=== PATIENT | female | born 1945 | race Caucasian/White ===

== ENCOUNTER 2018-05-14 18:45 | Emergency (ER) | payer MEDICARE, OTHER ==
[~2018-05-14] VITALS: Ht 170.2 cm; Wt 63.6 kg
[2018-05-14 19:47] LABS: BASOPHILS % (AUTO) 0.5 % (0-1); EOSINOPHILS # (AUTO) 0.1 X10'3 (0-0.9); EOSINOPHILS % (AUTO) 1.8 % (0-6); HEMATOCRIT 36.4 % (35.0-45.0); HEMOGLOBIN 12.6 g/dl (12.0-16.0); LYMPHOCYTES # (AUTO) 2.1 X10'3 (1.1-4.8); LYMPHOCYTES % (AUTO) 29.2 % (21-51); MEAN CORPUSCULAR HEMOGLOBIN 31.5 PG (27.0-31.0); MEAN CORPUSCULAR HGB CONC 34.7 % (33.0-36.5); MEAN CORPUSCULAR VOLUME 90.7 FL (78-98); MEAN PLATELET VOLUME 9.4 FL (7.4-10.4); MONOCYTES # (AUTO) 0.4 X10'3 (0-0.9); MONOCYTES % (AUTO) 5.1 % (2-12); NEUTROPHILS # (AUTO) 4.5 X10'3 (1.8-7.7); NEUTROPHILS % (AUTO) 63.4 % (42-75); PLATELET COUNT 173 X10'3 (140-440); RED BLOOD COUNT 4.02 X10'6 (4.20-5.60); WHITE BLOOD COUNT 7.1 X10'3 (4.5-11.0)
[2018-05-14 19:59] LABS: PARTIAL THROMBOPLASTIN TIME 22 SECONDS (22-32)
[2018-05-14] MEDS ORDERED: normal saline 1000ML IV soln IVB ONE (20:00)
[2018-05-14 20:01] LABS: ALANINE AMINOTRANSFERASE 17 U/L (12-78); ALBUMIN 3.3 G/DL (3.4-5.0); ALBUMIN/GLOBULIN RATIO 1.1 (1.1-1.5); ALKALINE PHOSPHATASE 73 IU/L (46-116); ANION GAP 9 (8-16); ASPARTATE AMINO TRANSFERASE 11 U/L (10-37); BILIRUBIN,TOTAL 0.2 MG/DL (0.1-1.0); BLOOD UREA NITROGEN 21 MG/DL (7-18); BUN/CREATININE RATIO 19.8 (6.6-38.0); CALCIUM 8.7 MG/DL (8.5-10.1); CHLORIDE 104 MMOL/L (99-107); CREATININE 1.06 MG/DL (0.40-0.90); GLUCOSE 136 MG/DL (70-104); POTASSIUM 3.8 MMOL/L (3.5-5.1); SODIUM 140 MMOL/L (135-145); TOTAL PROTEIN 6.3 G/DL (6.4-8.2); eGFR 51 ML/MIN
[2018-05-14] MEDS ORDERED: NO HOME MEDS (21:37)
[2018-05-14 22:23] VITALS: BP 125/74
== END 2018-05-14 22:20 | disposition left against medical advice (07) ==
LOC: ER 18:45
DX: R55 Syncope and collapse (principal); F17.210 Nicotine dependence, cigarettes, uncomplicated; Z91.040 Latex allergy status
CPT/HCPCS: 36415; 71045; 80053; 82948; 84484; 85025; 85610; 85730; 93005; 96360; 99285; J7030

== ENCOUNTER 2020-06-21 03:37 | Emergency (ER) | payer MEDICARE, OTHER ==
[~2020-06-21] VITALS: Ht 170.2 cm; Wt 69.1 kg
[~2020-06-21 03:37] MED LIST: NO HOME MEDS
[2020-06-21 03:42] VITALS: BP 173/98
== END 2020-06-21 04:18 | disposition home or self-care (01) ==
LOC: ER 03:38
DX: M79.672 Pain in left foot (principal); Z79.899 Other long term (current) drug therapy
CPT/HCPCS: 99281

== ENCOUNTER 2025-08-31 15:37 | Emergency (ER) | payer MEDICARE, OTHER ==
[~2025-08-31] VITALS: Ht 167.6 cm; Wt 74.1 kg
[~2025-08-31 15:37] MED LIST changes: +ALBU18HF2 INH; +DEXA6TAB PO; -NO HOME MEDS
--- NOTE | 2025-08-31 15:59 | Physician Documentation ---
History of Present Illness Chief Complaint: Abdominal Pain w/vomiting Stated Complaint: NAUSEA/VOMITING Primary Medical Doctor: [facility] BHARATH Is a very pleasant 80-year-old female that presents to the emergency department for evaluation of nausea vomiting x1 day. Per patient she made eggnog on Wednesday, her family drank it and they became sick but she finished the rest of it. She has been vomiting and having watery diarrhea since. She also has cramping abdominal pain and bloating diffusely. Patient reports that she primarily has left lower quadrant pain. Patient denies fevers & chills or bloody stools but does report nausea and vomiting at this time. Patient reports that she spoke with her primary care provider who asked her to take some milk of magnesia along with other medications due to feeling like she was constipated. She was unable to keep these down. Patient reports that she took some Gas-X last night so that she can sleep which helped. Denies taking any regular medications. Patient reports that she has esophageal difficulty with swallowing in his scheduled to have a swallow study done with her primary care provider. No other symptoms reported at this time. Addendum ER physician addendum The patient confirms that she is having abdominal pain and vomiting. She states that her entire abdomen feels distended and painful, but the pain is worse in the left lower quadrant. She has had multiple episodes of vomiting. She tried taking a laxative but it did not help. She is not passing any significant amount of stool and minimal gas. She has had multiple abdominal surgeries including appendix, total hysterectomy. No history of bowel obstruction. She thinks it all started when she drank some eggnog that also made other people sick. She would like some pain medicine Medication Reconciliation Allergies: Coded Allergies: latex (Unverified Allergy, Unknown, 08/31/25) Uncoded Allergies: STATINS (Allergy, Unknown, 03/02/22) Scheduled Albuterol Sulfate (Ventolin Hfa), 2 PUFFS INH Q4HPRN Dexamethasone (Dexamethasone), 6 MG PO DAILY Past Medical History Past Medical History: Arrhythmia, High Cholesterol Past Surgical History: other Alcohol Use: Rarely Lives with: Spouse Lives In: Home Occupation: retired Review of Systems Constitutional: Denies: fever Gastrointestinal: Reports: abdominal pain, nausea, vomiting, constipated Physical Exam Vital Signs: Temperature: 98.1, Source: Temporal, Heart Rate: 62, Respiratory Rate: 18, BP: 182/74, Pulse Oximetry: 99, Weight: 74.100 Oxygen Flow Rate: 0 Physical Exam General: This is a tired and uncomfortable appearing older woman HEENT: Atraumatic, oropharynx is dry with cracked lips Heart: Regular rate and rhythm, normal-appearing peripheral perfusion Lungs: normal work of breathing, normal oxygen saturation on room air Abdomen: Soft, mildly distended. Focal tenderness to palpation in the left lower quadrant, with no peritoneal findings Neuro: Alert and oriented Psychiatric: Flattened affect and appears tired, but is cooperative with exam Progress Results/Orders Results/Orders Vital Signs 08/31/25 15:47 Temp 98.1 Pulse 62 Resp 18 B/P (MAP) 182/74 Pulse Ox 99 O2 Flow Rate 0 EKG/XRAY/CT/US/VASC/MRI CT : Impression I personally interpreted the CT scan, and this shows there was some dilatation and inflammatory changes to the left ureter, no obvious kidney stone. No bowel obstruction. Medical Decision Making Additional information obtaine: N/A Findings na Differential Dx:Considerations: Bowel obstruction, Constipation, Diverticular disease, Hernia, Ischemic bowel Additional Comments The patient presents with left lower quadrant pain, nausea and vomiting. This could be related to drinking bad eggnog. She also has had multiple abdominal surgeries and bowel obstructions high in the differential. She does appear clinically dehydrated. She was given IV fluids, pain and nausea medicine. Labs overall unremarkable. CT scan without acute process to explain her symptoms. T here is dilatation to the ureter in the left side, of unclear significance. After treatment, the patient felt completely back to normal and had no symptoms or complaints. She requested to go home. She will be discharged with ongoing symptomatic treatment at home. She will follow up with the primary care doctor to discuss the CT findings. Return precautions given. Departure Time of Disposition: 00:45 Disposition: 01 HOME / SELF CARE / HOMELESS Impression: Primary Impression: Left lower quadrant pain Additional Impression: Nausea and vomiting Condition: Improved Discharge Instructions: Nausea and Vomiting, Adult Referrals: NO PRIMARY CARE PROVIDER (PCP) Education Educated: Patient Educated regarding: diagnosis, treatment, need for follow up Signature Scribe Signature: na Attestation: BECCA Mills Aug 31, 2025 15:59 CORAZON DESAI MD Aug 31, 2025 20:14
[2025-08-31 16:14] LABS: MEAN PLATELET VOLUME 9.2 FL (7.4-10.4); RED CELL DISTRIBUTION WIDTH 13.8 % (11.5-14.5)
[2025-08-31 16:31] LABS: CREATININE 0.80 MG/DL (0.40-0.90); TOTAL CARBON DIOXIDE 25.4 MMOL/L (24-32); eCRCL 53 ML/MIN; eGFR 69 ML/MIN
[2025-08-31 19:45] VITALS: BP_DIAS 99; TEMP 98.1; O2SAT 93
[2025-08-31] MEDS ORDERED: iohexol 300mg/ml 100ml inj. ONE (20:16)
[2025-08-31] MEDS: dicyclomine 10mg/ml 2ml VIAL IM ONE (20:32)
[2025-08-31] MEDS: normal saline 1000ml 1,000 ML IV ONE (20:32)
[2025-08-31] MEDS: ondansetron/PF 4mg/2ml inj IV ONE (20:32)
[2025-08-31] MEDS: morphine 4 MG/ML inj SYRINge IV ONE (20:32)
[2025-08-31 20:38] LABS: LEUKOCYTE ESTERASE ,URINE NEGATIVE (Neg); NITRITES, URINE NEGATIVE (Neg); OCCULT BLOOD,URINE SMALL (Neg)
[2025-08-31 20:44] LABS: UA COLLECTION TYPE NON-SPECIFIED
[2025-08-31 20:50] LABS: SQUAMOUS EPITHELIAL CELL,UR FEW /LPF (FEW)
--- NOTE | 2025-08-31 21:10 | RADIOLOGY REPORT ---
EXAM: CT CT ABDOMEN PELVIS W/ IV CONTRAST History: Left lower quadrant pain, vomiting, not passing any stool Comparison Study: None Exam Date: 08/31/2025 08:40 PM Radiation Dose Information: CT Dose: CTDI volume is 24 mGy. Dose-length product is 1146 mGy*cm TECHNIQUE: During the uneventful, intravenous administration of contrast material, multislice data acquisition was obtained through the abdomen and pelvis. The data set was subsequently reconstructed into axial images. Images were reviewed on a work station using a combination of axial and multiplanar using a variety of window levels and settings. FINDINGS: Lower chest: Clear. Liver: A few subcentimeter low density foci too small to characterize. Hepatic steatosis. Biliary system: Unremarkable Spleen: Unremarkable Pancreas: Unremarkable. Adrenals: Unremarkable. Kidneys and ureters: Moderate left collecting system dilatation, with tapering seen in the mid left ureter with diffuse urothelial wall thickening and surrounding fat stranding. Bowel: No obstruction. Decompressed distal colon. Bladder: Unremarkable Reproductive organs: No abnormal mass. Lymph nodes: Unremarkable. Peritoneum: Unremarkable Vessels: Patent major intra-abdominal vasculature. Bones and soft tissue: No aggressive osseous lesion IMPRESSION: Moderate left collecting system dilatation, with tapering seen in the mid left ureter with diffuse urothelial wall thickening and surrounding fat stranding. No obstructing calculus is seen. While this could be related to recently passed calculus and/or superimposed infection, recommend outpatient urology consultation and/or CT urogram to exclude underlying ureteral stricture or lesion.
[2025-09-01 00:49] VITALS: BP_SYST 97; PULSE 85; RESP 16
== END 2025-09-01 00:57 | disposition home or self-care (01) ==
LOC: ER 15:38
DX: R11.2 Nausea with vomiting, unspecified (principal); R10.32 Left lower quadrant pain; E78.00 Pure hypercholesterolemia, unspecified; Z91.040 Latex allergy status; Z90.710 Acquired absence of both cervix and uterus; Z79.899 Other long term (current) drug therapy
CPT/HCPCS: 36415; 74177; 80053; 81001; 83605; 83690; 85025; 96372; 96374; 96375; 99285; J0500; J2270; J2405; J7030; Q9967